=== PATIENT | male | born 1990 | race Caucasian/White ===

== ENCOUNTER 2025-02-03 18:59 | Emergency (ER) | payer MEDICAID, OTHER ==
[~2025-02-03] VITALS: Ht 172.7 cm; Wt 182.0 kg
[2025-02-03 19:00] VITALS: O2SAT 94
[2025-02-03 19:45] LABS: EOSINOPHILS % 1.3 % (0.0-5.0); HEMATOCRIT. 45.7 % (42.0-52.0); HEMOGLOBIN. 15.5 g/dL (14.0-18.0); LYMPHOCYTES % 25.2 % (20.0-50.0); MEAN CORPUSCULAR HEMOGLOBIN 30.2 pg (28.0-32.0); MEAN CORPUSCULAR HGB CONC 33.9 g/dL (31.0-37.0); MEAN CORPUSCULAR VOLUME 89.2 fL (80.0-94.0); MEAN PLATELET VOLUME 8.4 fl (7.4-10.4); MONOCYTES % 5.5 % (2.0-8.0); PLATELET 202 x1000/uL (130-400); RED BLOOD CELL COUNT 5.12 mill/uL (4.7-6.1); RED CELL DISTRIBUTION WIDTH 14.2 % (11.6-14.6); WHITE BLOOD COUNT 10.4 x1000/uL (4.5-11.0)
[2025-02-03 19:51] LABS: CHLORIDE 101 mEq/L (98-107); POTASSIUM 3.6 mEq/L (3.5-5.1); SODIUM 137 mEq/L (136-145)
[2025-02-03 19:52] LABS: CARBON DIOXIDE 25 mEq/L (21-32)
[2025-02-03 19:53] LABS: CALCIUM 9.2 mg/dL (8.7-10.4)
[2025-02-03 19:57] LABS: CREATININE 0.8 mg/dL (0.6-1.3); PARTIAL THROMBOPLASTIN TIME 27.3 sec (23.4-31.0); PROTHROMBIN TIME 11.2 sec (9.6-11.0)
[2025-02-03 19:58] LABS: GLUCOSE 188 mg/dL (70-105); UREA NITROGEN BLOOD 11 mg/dL (9-23)
[2025-02-03 23:16] VITALS: BP 139/79; PULSE 96; RESP 18; TEMP 36.7; O2SAT 97
== END 2025-02-03 23:18 | disposition home or self-care (01) ==
LOC: ER 18:59
DX: I83.92 Asymptomatic varicose veins of left lower extremity (principal); Z90.49 Acquired absence of other specified parts of digestive tract
CPT/HCPCS: 36415; 80048; 85025; 99283

== ENCOUNTER 2025-02-05 21:50 | Emergency (ER) | payer OTHER ==
[~2025-02-05] VITALS: Ht 172.7 cm; Wt 200.0 kg
[2025-02-05 22:07] VITALS: O2SAT 98
[2025-02-06 00:26] LABS: CHLORIDE 101 mEq/L (98-107); POTASSIUM 4.1 mEq/L (3.5-5.1); SODIUM 138 mEq/L (136-145)
[2025-02-06 00:27] LABS: CALCIUM 9.6 mg/dL (8.7-10.4); CARBON DIOXIDE 29 mEq/L (21-32)
[2025-02-06 00:29] LABS: BASOPHILS % 1.4 % (0.0-2.0); EOSINOPHILS % 1.2 % (0.0-5.0); HEMATOCRIT. 44.3 % (42.0-52.0); HEMOGLOBIN. 14.8 g/dL (14.0-18.0); LYMPHOCYTES % 23.2 % (20.0-50.0); MEAN CORPUSCULAR HEMOGLOBIN 30.5 pg (28.0-32.0); MEAN CORPUSCULAR HGB CONC 33.4 g/dL (31.0-37.0); MEAN CORPUSCULAR VOLUME 91.4 fL (80.0-94.0); MEAN PLATELET VOLUME 8.5 fl (7.4-10.4); MONOCYTES % 7.9 % (2.0-8.0); NEUTROPHILS % 66.3 % (40.0-76.0); PLATELET 161 x1000/uL (130-400); RED BLOOD CELL COUNT 4.85 mill/uL (4.7-6.1); WHITE BLOOD COUNT 11.1 x1000/uL (4.5-11.0)
[2025-02-06 00:32] LABS: CREATININE 0.9 mg/dL (0.6-1.3); GLUCOSE 137 mg/dL (70-105); UREA NITROGEN BLOOD 14 mg/dL (9-23)
[2025-02-06 00:34] LABS: ALANINE AMINOTRANSFERASE 213 IU/L (10-49); ALBUMIN 4.3 g/dL (3.2-4.8); ASPARTATE AMINOTRANSFERASE 148 IU/L (<34); BILIRUBIN DIRECT 0.4 mg/dL (<=3.0)
[2025-02-06 00:35] LABS: PROTEIN TOTAL 7.3 g/dL (6.0-8.3)
[2025-02-06 00:38] LABS: PROTHROMBIN TIME 11.2 sec (9.6-11.0)
[2025-02-06 00:50] VITALS: BP 148/91; PULSE 96; RESP 20; TEMP 37.2; O2SAT 100
== END 2025-02-06 00:52 | disposition home or self-care (01) ==
LOC: ER 21:50
DX: R58 Hemorrhage, not elsewhere classified (principal)
CPT/HCPCS: 36415; 99283; 80076; 80048; 83690; 85025; 85610; Z7610; A6449